=== PATIENT | male | born 1970 | race Caucasian/White ===

== ENCOUNTER 2024-01-10 10:25 | Emergency (ER) | payer BC, OTHER ==
[~2024-01-10] VITALS: Ht 180.3 cm; Wt 97.4 kg
[~2024-01-10 10:25] MED LIST: HYDROCODON-ACE1 EA10 PO; LEVOTHYROXINE75 MC1 PO; LIPITOR10 MG PO
[2024-01-10 10:55] VITALS: BP 117/83
== END 2024-01-10 10:57 | disposition home or self-care (01) ==
LOC: ED 10:25
DX: R59.0 Localized enlarged lymph nodes (principal); Z88.5 Allergy status to narcotic agent
CPT/HCPCS: 99283

== ENCOUNTER 2024-08-18 20:02 | Observation (INO) | payer OTHER ==
[~2024-08-18] VITALS: Ht 180.3 cm; Wt 93.4 kg
[2024-08-18] MEDS ORDERED: ARIPIPRAZOLE5 MG PO (21:27)
[2024-08-18] MEDS ORDERED: FAMOTIDINE20 MG PO (21:27)
[2024-08-18] MEDS ORDERED: GABAPENTIN300 MG PO (21:27)
[2024-08-18] MEDS ORDERED: MELOXICAM7.5 MG PO (21:28)
[2024-08-18] MEDS ORDERED: TAMSULOSIN HCL0.4 MG PO (21:28)
[2024-08-18] MEDS ORDERED: ondansetron HCL 4 MG/2 ML VIAL IV ONE (21:45)
[2024-08-18] MEDS ORDERED: SODIUM CHLORIDE 0.9% 1,000 ML IV ONE (21:45)
[2024-08-18] MEDS ORDERED: fentaNYL citrate 100 MCG/2 ML VIAL IV ONE (21:45)
[2024-08-18 21:51] LABS: ALBUMIN 3.8 g/dL (3.4-5.0); ALBUMIN/GLOBULIN RATIO 0.93 (1.1-2.4); ANION GAP 11.4 (7-21); BILIRUBIN, TOTAL 0.7 mg/dL (0.2-1.0); BUN/CREATININE RATIO 8.43 (6.0-28.6); CALCIUM 9.5 mg/dL (8.5-10.1); CREATININE, SERUM 1.66 mg/dL (0.70-1.30); POTASSIUM 4.4 mmol/L (3.5-5.1); PROTEIN, TOTAL 7.9 g/dL (6.4-8.2)
[2024-08-18 22:18] LABS: BASOPHILS 0.6 % (0-2); HEMATOCRIT 45.8 % (35.0-50.0); HEMOGLOBIN 15.5 g/dL (12.0-18.0); LYMPHOCYTES 22.8 % (24-44); MCH 31.9 (27-36); MCHC 33.7 g/dl (30-36); MCV 94.5 fl (81-99); MONOCYTES 4.7 % (0-12); NEUTROPHILS 69.9 % (39-80); PLATELET COUNT 173 K/uL (140-440); RBC 4.85 M/ul (4.3-5.7); RDW 15.5 (10.5-15.0)
[2024-08-18 23:22] LABS: BILIRUBIN, URINE NEGATIVE (negative); BLOOD/HGB, URINE NEGATIVE (Negative); KETONE, URINE NEGATIVE (Negative); LEUK ESTERASE, URINE NEGATIVE (negative); NITRITE, URINE NEGATIVE (negative)
[2024-08-18] MEDS ORDERED: FAMOTIDINE 20 MG/ 2 ML VIAL IV SCH (23:29)
[2024-08-18] MEDS ORDERED: ACETAMINOPHEN 1,000 MG/100 ML VIAL IV PRN (23:30)
[2024-08-18] MEDS ORDERED: DEXTROSE 5% - LACTATED RINGERS 1,000 ML IV SCH (23:30)
[2024-08-18] MEDS ORDERED: ondansetron HCL 4 MG/2 ML VIAL IV PRN (23:30)
[2024-08-18] MEDS ORDERED: HYDROmorphone HCL 1 MG/ML SYR IV PRN (23:30)
[2024-08-19] VITALS (10 sets, daily range): BP systolic 95–106; BP diastolic 52–67
--- NOTE | 2024-08-19 00:15 | NUR ---
PT SCOOTED FROM ER STRECHER TO BED, NGT CONNECTED. ORIENTED PT TO CALL LIGHT, NPO AND ROOM. DISCUSSED PLAN OF CARE. TAUGHT PT AND HE DEMONSTRATED USE OF IS, SCDS ON LEGS. PT DENIES NEED FOR MEDS AT THIS TIME. ASSESSMENT COMPLETED.
[2024-08-19 05:48] LABS: BASOPHILS 0.7 % (0-2); EOSINOPHILS 3.5 % (0-6); HEMATOCRIT 37.1 % (35.0-50.0); HEMOGLOBIN 12.8 g/dL (12.0-18.0); LYMPHOCYTES 33.5 % (24-44); MCH 32.5 (27-36); MCHC 34.6 g/dl (30-36); MONOCYTES 4.9 % (0-12); NEUTROPHILS 57.4 % (39-80); PLATELET COUNT 130 K/uL (140-440); RBC 3.95 M/ul (4.3-5.7); RDW 15.4 (10.5-15.0)
[2024-08-19 06:09] LABS: ALBUMIN 2.8 g/dL (3.4-5.0); ALBUMIN/GLOBULIN RATIO 0.82 (1.1-2.4); ANION GAP 8.8 (7-21); BILIRUBIN, TOTAL 0.5 mg/dL (0.2-1.0); BUN/CREATININE RATIO 9.16 (6.0-28.6); CALCIUM 8.3 mg/dL (8.5-10.1); CREATININE, SERUM 1.31 mg/dL (0.70-1.30); POTASSIUM 3.8 mmol/L (3.5-5.1); PROTEIN, TOTAL 6.2 g/dL (6.4-8.2)
--- NOTE | 2024-08-19 07:36 | NUR ---
MORNING REPORT RECIEVED FROM MAYO JOYCE. PT LAYING IN BED WITH EYES CLSOED AND CHEST RISE EQUAL BILAT, NG TUBE IN PLACE WITH FLUIDS RUNNING, (SEE EMAR). PT HAS CALL LIGHT IN REACH.
--- NOTE | 2024-08-19 08:35 | NUR ---
PT LAYING IN BED AWAKE AND ALERT, PT DOES STATE " HE HAS MILD DISCOMFORT IN HIS UPPER RIGHT ABD". PT HAS NO OTHER CONCERNS AT THIS TIME AND DOES NOT REQUEST PAIN MEDICATION. PT CALL LIGHT IN REACH.
[2024-08-19] MEDS ORDERED: FAMOTIDINE 20 MG/ 2 ML VIAL IV SCH (09:39)
[2024-08-19] MEDS ORDERED: ondansetron HCL 4 MG/2 ML VIAL IV PRN (09:45)
[2024-08-19] MEDS ORDERED: KETOROLAC TROMETHAMINE 30 MG/ML VIAL IV PRN (09:45)
[2024-08-19] MEDS ORDERED: LACTATED RINGER'S 1,000 ML IV SCH (09:45)
--- NOTE | 2024-08-19 10:28 | NUR ---
PT CURRENTLY BEING SEEN BY IMAGING, PT NG TUBE SUCTION WAS TURNED OFF AND NG TUBE CLAMPED.
--- NOTE | 2024-08-19 11:18 | NUR ---
PT LAYING IN BED WITH NG TUBE CLAMPED FOR BOWEL STUDY PT REPORTING NO PAIN AT THIS TIME CALL LIGHT IN REACH.
--- NOTE | 2024-08-19 11:57 | NUR ---
PT LAYING IN BED, PT STATES " HE THINKS HE IS GETTING CLOSE TO HAVING A BOWEL MOVEMENT, AND IS PASSING GAS". PT INFORMED TO CALL IF HE FEELS THE NEED TO HAVE A BM. PT HAS CALL LIGHT IN REACH AND NO CONCERNS AT THIS TIME.
[2024-08-19] MEDS ORDERED: LEVOTHYROXINE175 MCG PO (12:43)
--- NOTE | 2024-08-19 12:46 | NUR ---
PT NOT AVAILABLE FOR VISIT. PROVIDED PRAYER.
--- NOTE | 2024-08-19 12:53 | NUR ---
ASSISTANT TERMINAL MANAGER ASSISITED PATIENT TO BATHROOM. CALL LIGHT WITHIN REACH, NO FURTHER NEEDS AT THIS TIME.
--- NOTE | 2024-08-19 13:56 | HP ---
[facility] [address], [place] [address] Signed ADMISSION DATE: 08/18/2024 REASON FOR ADMISSION: Small bowel obstruction. HISTORY OF PRESENT ILLNESS: This 54-year-old white man had two days of increasing abdominal pain and change of his bowel movements (specifically not having bowel movement in the morning as usual). Today, he presented to the emergency room at approximately 9:30 p.m. And evaluated by Dr. Luke with complaints of generalized abdominal pain. He had nausea and vomiting and severe discomfort rated 10/10. Evaluation included clinical examination and CT scan, which showed findings consistent with small bowel obstruction with a gradual transition point within the left mid abdomen. There was marked mesenteric edema, small volume of free fluid, but no free air. He had multiple small layering calculi within the left urinary bladder area. Punctate nonobstructing. Calculi were noted within the left kidney. Calcium level was normal it is 9.5. He was admitted for further evaluation and care after placement of nasogastric tube. PAST MEDICAL HISTORY: Quite unremarkable. He has had orthopedic surgery of his lower extremities, but no abdominal surgery. He does have past history of hypothyroidism. MEDICATIONS: He takes medicines, famotidine, aripiprazole, gabapentin, meloxicam, Flomax and Synthroid as well as atorvastatin. SOCIAL HISTORY: He is . His 's children live in the home. 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 He is on the [employer]. REVIEW OF SYSTEMS: He denies any shortness of breath or chest pain. He does feel markedly improve since nasogastric tube decompression has been accomplished. He denies any hernias that he is aware of. PHYSICAL EXAMINATION: GENERAL: Pleasant white man who appears to be in no acute distress at this time. Nasogastric tube shows drainage of green bilious fluid. His is on the cellphone at the current time of our evaluation. VITAL SIGNS: Currently show temperature 98.3, pulse 86, blood pressure 101/58, O2 Electronically Signed By: NELSON MONROE MD 08/19/24 1356 PATIENT NAME: MARA KHOURY HISTORY AND PHYSICAL DATE OF : 74 REPORT #: [id number] PHYSICIAN: NELSON MONROE MD PCP: CARLOS CARNES PA-C REPORT IS CONFIDENTIAL AND NOT TO BE RELEASED WITHOUT AUTHORIZATION [facility] [address], [place] [address] Signed saturation 95% on room air. \E\\E\NECK: Trachea is midline. CHEST: Clear to auscultation. HEART: Regular without murmur. ABDOMEN: Nondistended. There is only minimal tenderness in the left abdomen. There is no sign of umbilical or inguinal hernia. EXTREMITIES: Show no clubbing, cyanosis, or edema. LAB STUDIES: This morning show white count of 5.7, previously 8.2; hematocrit is 37.1, previously 45.8; platelets 130,000, previously 173,. Chem profile shows a creatinine improvement to 1.31 from 1.66. Electrolytes are otherwise normal. Glucose is 127, previously 158. Liver enzymes normal. Lipase normal at 23. Urinalysis is negative. CT scan was reviewed and interpretation reviewed as well. The patient had clear evidence of small-bowel obstruction and now clinically is doing quite well with decompression of the stomach. Under the circumstance of his marked improvement, I would recommend a small-bowel follow-through to assure that the bowel obstruction has resolved on its own. Quite obviously, it is uncommon to have a bowel obstruction without antecedent intervention such as laparotomy. Those patients with his presentation often require operative decompression, but in his case he appears improved enough that may not be required. We will order small-bowel follow-through via nasogastric tube and assess progress of contrast through his GI tract. Depending on those findings, appropriate management will be initiated. MD STEFAN Matthews/VÍCTORL /[id number] cc: Dr. Luke Electronically Signed By: NELSON MONROE MD 08/19/24 1356 PATIENT NAME: MARA KHOURY HISTORY AND PHYSICAL DATE OF : 74 REPORT #: [id number] PHYSICIAN: NELSON MONROE MD PCP: CARLOS CARNES PA-C REPORT IS CONFIDENTIAL AND NOT TO BE RELEASED WITHOUT AUTHORIZATION [facility] [address] [facility] [place] [address] Signed Copies: ~ Electronically Signed By: NELSON MONROE MD 08/19/24 1356 PATIENT NAME: MARA KHOURY MARIA EUGENIA HISTORY AND PHYSICAL DATE OF : 74 REPORT #: [id number] PHYSICIAN: NELSON MONROE MD PCP: CARLOS CARNES PA-C REPORT IS CONFIDENTIAL AND NOT TO BE RELEASED WITHOUT AUTHORIZATION
--- NOTE | 2024-08-19 14:30 | NUR ---
Spoke with Ryan. He lives in a house with 4 steps with his and step children. He works at [employer]. He does not use any DME. 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 Pt plans on dc to home when he is medically cleared. He denies any financial issues and states he is over income for food stamps. We discussed resources in [place] and pt denies needing. We discussed foodbanks, and pt agreed to a list of food garcia as he did not realize there are any in town. Denies other needs.
--- NOTE | 2024-08-19 14:39 | NUR ---
UR CLINICAL REVIEW: [facility] [place] ME[place] OBS CRITERIA FOR SBO WITH NG PLACEMENT ODS [place] OBS 08/19/24 @ 0939 ORDER MATCHES REG NO AUTH REQUIRED FOR OBS STAY PER MODA GUIDELINES PER MD NOTE PATIENT IMPROVING RAPIDLY. POSSIBLE DISCHARGE IN 24 HOURS 08/20/24
--- NOTE | 2024-08-19 14:40 | NUR ---
PT HAD LARGE BM WITH NO BLOOD NOTED IN STOOL. PT REPORTS FEELING BETTER AFTER BM. PT HAS CALL LIGHT IN REACH AND NO CURRENT CONCERNS AT THIS TIME.
--- NOTE | 2024-08-19 16:49 | NUR ---
PT SITTING UP IN BED, PT CONTINUES TO HAVE BM'S. MD MONROE INFORMED OF PT PROGRESS AND WANTS TO CONTINUE POC AND KEEP PT OVERNIGHT FOR OBSERVATION. PT HAS NO CONCERNS AT THIS TIME CALL LIGHT IN REACH.
[2024-08-19] MEDS ORDERED: QUETIAPINE FUMA50 MG PO (17:09)
--- NOTE | 2024-08-19 17:42 | NUR ---
PT NG TUBE DC'D PER MD ORDER. PT TOLERATED WELL AND HAS NO PAIN AT THIS TIME AND IS TOLERATING CLEAR LIQUID DIET WELL WITH NO NAUSEA. PT IN BED WITH CALL LIGHT IN REACH.
--- NOTE | 2024-08-19 18:10 | NUR ---
PATIENT SITTING UP ON BED AT THIS TIME. VITALS AND I&O'S DONE AND CHARTED. CALL LIGHT IN REACH. NO FURTHER NEEDS AT THIS TIME.
--- NOTE | 2024-08-19 18:16 | NUR ---
PT SITTING UP IN BED, PT TOLERATING CLEAR LIQUID DIET WELL. PT CONTINUES TO HAVE BM'S. PT REQUESTED ANOTHER ENSURE, PT HAS NO CONCERNS AT THIS TIME CALL LIGHT IN REACH.
--- NOTE | 2024-08-19 20:46 | NUR ---
Pt awake, alert and oriented, no c/o pain, on room air, lungs clear bilat, regular heart rate. IVF infusing RA. abd soft HEA, LBM a few minutes ago. no c/o abd pain,, scds off at this time. independent in room. voiding QS. tolerating diet well. Playing with phone.
--- NOTE | 2024-08-19 23:24 | NUR ---
RSTING, EYES CLOSED, IVF INFUSING, NO S/SX DISTRESS AT THIS TIME
--- NOTE | 2024-08-20 01:18 | NUR ---
Resting, eyes closed, no s/s distress, IVF infusing w/o problems.
--- NOTE | 2024-08-20 03:26 | NUR ---
Resting, eyes closed, On room air. Turns and reposisions self in bed. IVF infusing w/o problems.
[2024-08-20 05:24] VITALS: BP 97/59
--- NOTE | 2024-08-20 05:40 | NUR ---
AWAKE, ON ROOM AIR, LUNGS CLEAR, NO CHANGES. ABD SOFT, NO BM THIS SHIFT. VOIDING QS. TOLERATING CLEAR LIQUIDS WELL. C/O ABD PAIN, MEDICATED WITH TORADOL. ivf INFUSING W/O PROBLEMS. TURNS AND REPOSITIONS SELF IN BED, INDEPENDENT IN ROOM
[2024-08-20 05:41] VITALS: BP 97/59
--- NOTE | 2024-08-20 07:28 | NUR ---
MORNING REPORT RECIEVED FROM MAYO MELÉNDEZ. PT AWAKE AND ALERT IN BED WITH SPOUSE BEDSIDE. PT IS CURRENTLY DRIKING CLEAR LIQUIDS AND REPORTS NO PAIN AT THIS TIME. PT HAS NO COCNCERNS AT THIS TIME CALL LIGHT IN REACH.
--- NOTE | 2024-08-20 08:15 | NUR ---
PATIENT IN BED AT THIS TIME. RESTAURANT HOSTESS WENT INTO PATIENTS ROOM FOR HOURLY ROUNDS. CALL LIGHT WITHIN REACH, NO FURTHER NEEDS AT THIS TIME.
--- NOTE | 2024-08-20 08:52 | NUR ---
PT SITTING UP IN BED, PT EXPRESSES NO DISCOMFORT AT THIS TIME, PT CALL LIGHT IN REACH WITH NO CONCERNS AT THIS TIME.
--- NOTE | 2024-08-20 09:34 | NUR ---
UR CONCURRENT REVIEW: [facility] [place]VIEW DOES NOT PAULA DC CRITERIA DUE TO THE NEED TO ADVANCE DIET. VARIANCE COMPLETED OBS 08/18/24 @ 2326 ORDER MATCHES REG NOT AUTH REQUIRED FOR OBS VISITS PER GUIDELINES PER MD NOTES LIKELY DC TODAY IF REG DIET IS TOLERATED 08/21/24
[2024-08-20 09:43] VITALS: BP 107/57
--- NOTE | 2024-08-20 09:45 | NUR ---
PATIENT IN BED AT THIS TIME. REFRIGERATOR REPAIRMAN CHARTED VITALS AND I&O'S. CALL LIGHT WITHIN REACH, NO FURTHER NEEDS AT THIS TIME.
[2024-08-20 10:05] VITALS: BP 107/57
--- NOTE | 2024-08-20 10:46 | NUR ---
VISITED DURING SPIRITUAL CARE ROUNDS. PT IN OVERALL GOOD SPIRITS, NO IMMEDIATE NEEDS. UNSCRAMBLER PROVIDED SUPPORTIVE PRESENCE, HOSPITALITY, PRAYER. PT EXPRESSED GRATITUDE.
--- NOTE | 2024-08-20 11:00 | NUR ---
Spoke with Ryan. He denies needs. NG is out. He states he is feeling better. He denies any needs. Pt plans to dc to home with when he is cleared to go home.
--- NOTE | 2024-08-20 11:38 | NUR ---
PT SITTING UP IN BED WITH IV FLUIDS INTACT. PT HAS NO CURRENT CONCERNS AT THIS TIME PT HAS CALL LIGHT IN REACH.
--- NOTE | 2024-08-20 12:38 | NUR ---
PT SITTING UP IN BED, PT WAS ADVANCED TO A REGULAR DIET AND IS TOLERATING WELL. PT STATES " HE IS TAKING IT SLOW BECAUSE HE FEELS HE BECOMES FULL MORE QUICKLY" PT EXPRESSES HE FEELS THE NEED TO HAVE A BM. PT HAS NO CONCERNS AT THIS TIME CALL LIGHT IN REACH.
[2024-08-20 13:48] VITALS: BP 115/73
--- NOTE | 2024-08-20 13:52 | NUR ---
PATIENT IN BED AT THIS TIME, ROLL OUT MANAGER CHARTED VITALS AND I&O'S. CALL LIGHT WITH IN REACH , NOTHING ELSE NEEDED AT THIS TIME.
--- NOTE | 2024-08-20 14:02 | NUR ---
PT SITTING UP IN BED, PT SPOKE WITH MD MONROE AND DC ORDERS ARE IN. PT WAITING DC PAPER WORK TO GO HOME.
[2024-08-20 14:15] VITALS: BP 115/73
--- NOTE | 2024-08-27 12:42 | DS ---
[facility] [address], [place] [address] Signed ADMISSION DATE: 08/18/2024 DISCHARGE DATE: 08/20/2024 REASON FOR ADMISSION: Small bowel obstruction. HISTORY OF PRESENT ILLNESS: This 54-year-old white man had two days of increasing abdominal pain and change of bowel movements, specifically no bowel movement in his usual habit of every morning. He presented to the emergency room at approximately 9:30 p.m. and was evaluated by Dr. Luke with complaints of generalized abdominal pain with nausea and vomiting and severe discomfort rated 10/10. Evaluation included a clinical examination and CT scan, which showed findings consistent with small bowel obstruction with a gradual transition point within the left mid abdomen. There is marked mesenteric edema, small volume of free fluid, but no free air. He had multiple small layering calculi seen within the left bladder area. A punctate nonobstructing calculus was also noted within the left kidney. Calcium level was normal at 9.5. He is admitted for further evaluation and care after placement of nasogastric tube for presumed small-bowel obstruction. PHYSICAL EXAMINATION: GENERAL: Pleasant white man who did not look systemically toxic. NG showed drainage of green bilious fluid. VITAL SIGNS: Temperature is 98.3, pulse 86, blood pressure 101/58, O2 saturation 95% on room air. NECK: Trachea is normal. CHEST: Clear. HEART: Regular without murmur. ABDOMEN: Nondistended. There is minimal tenderness in the left abdomen. There is no sign of umbilical or inguinal hernia. EXTREMITIES: Show no clubbing, cyanosis, or edema. LABORATORY STUDIES: Show white count 8.2, hematocrit 45.8, platelets 173,000. Chem profile showed a creatinine initially 1.66, subsequently 1.31. HOSPITAL COURSE: He was considered to have clear evidence of small bowel obstruction based on CT and clinical findings. Nasogastric tube decompression was maintained. Following day, he seemed to have improvement. A plain abdominal x-ray was not done but surgeon small-bowel follow-through undertaken, which showed contrast passage throughout the small bowel and into the colon. He was begun on clear liquid diet and advanced to Electronically Signed By: NELSON MONROE MD 08/27/24 1242 PATIENT NAME: MARA KHOURY DISCHARGE SUMMARY DATE OF : 74 REPORT #: [id number] PHYSICIAN: NELSON MONROE MD PCP: CARLOS CARNES PA-C REPORT IS CONFIDENTIAL AND NOT TO BE RELEASED WITHOUT AUTHORIZATION [address] [address] Signed regular diet which he tolerated well. He had relatively prompt resolution of what appeared to be a small bowel obstruction. He will be discharged to home, to maintain a regular diet. If he has other problems, he will need further evaluation. He will return to the ongoing care of his usual primary care provider Emeka Ya. DISCHARGE MEDICATIONS: Will include: 1. Atorvastatin 10 mg p.o. daily. 2. Famotidine 20 mg p.o. at bedtime. 3. 5 mg p.o. daily. 4. Gabapentin 300 mg p.o. daily. 5. Meloxicam 7.5 mg p.o. b.i.d. 6. Flomax 0.4 mg p.o. daily. 7. Synthroid 175 mcg p.o. daily. 8. 50 mg tablets at bedtime. DISCHARGE DIAGNOSES: 1. Small bowel obstruction, unknown etiology; no prior history of laparotomy, no current finding of hernia. 2. Hypothyroidism. 3. BPH symptoms. 4. Musculoskeletal pain. MD STEFAN Matthews/AIDE /[id number] cc: Dr. Marly Carnes PA-C Electronically Signed By: NELSON MONROE MD 08/27/24 1242 PATIENT NAME: MARA KHUORY DISCHARGE SUMMARY DATE OF : 74 REPORT #: [id number] PHYSICIAN: NELSON MONROE MD PCP: CARLOS CARNES PA-C REPORT IS CONFIDENTIAL AND NOT TO BE RELEASED WITHOUT AUTHORIZATION [facility] [address] [place] [address] [place], [place] [address] Signed Copies: ~ Electronically Signed By: NELSON MONROE MD 08/27/24 1242 PATIENT NAME: MARA KHOURY DISCHARGE SUMMARY DATE OF : 74 REPORT #: [id number] PHYSICIAN: NELSON MONROE MD PCP: CARLOS CARNES PA-C REPORT IS CONFIDENTIAL AND NOT TO BE RELEASED WITHOUT AUTHORIZATION
== END 2024-08-20 14:15 | disposition home or self-care (01) ==
LOC: ED 20:02 → MS 23:26
PROVIDERS: Family Medicine; ADMIT Surgery; ATTEND Surgery
DX: K56.609 Unspecified intestinal obstruction, unspecified as to partial versus complete obstruction (principal); N20.0 Calculus of kidney; E03.9 Hypothyroidism, unspecified; Z79.890 Hormone replacement therapy; Z79.899 Other long term (current) drug therapy; Z88.5 Allergy status to narcotic agent
CPT/HCPCS: 36415; 71045; 74019; 74177; 74250; 80053; 81003; 83690; 83735; 85025; 96361; 96375; 96376; 99285-25; G0378; J1885; J2405; J3010; J7030; J7121; Q9967